=== PATIENT | male | born 1980 | race Caucasian/White ===

== ENCOUNTER 2016-10-02 16:07 | Emergency (ER) | payer OTHER ==
[2016-10-02] MEDS ORDERED: IOPAMIDOL 370 (76%) 100 ML VIAL IV ONE (16:08)
[2016-10-02] MEDS ORDERED: SODIUM CHLORIDE 0.9% 1,000 ML ONE (16:49)
[2016-10-02 16:59] LABS: ABSOLUTE NEUTROPHIL COUNT 3.9 K/mm3 (1.8-7.7); BASO % 0.5 % (0.2-1.0); EOS # 0.1 (0.0-0.5); EOS % 1.8 % (0.9-2.9); HEMATOCRIT 45.3 % (32.0-52.0); HEMOGLOBIN 15.3 gm/l (14.0-18.0); IMM NEUT% 0.5 % (0-1); LYMPH # 1.6 (1.0-4.8); MEAN CELL VOLUME 89.7 fl (80.0-94.0); MEAN CORPUSCULAR HEMOGLOBIN 30.3 pg (27.0-31.0); MEAN CORPUSCULAR HGB CONC 33.8 g/dl (33.0-37.0); MEAN PLATELET VOLUME 8.6 fl (7.4-10.4); MONO # 0.5 (0.0-0.8); MONO % 7.5 % (4-12); NEUT % 63.7 % (43-75); PLATELET COUNT 318 K/mm3 (130-400); RED CELL DISTRIBUTION WIDTH 12.7 % (11.5-14.5)
[2016-10-02 17:20] LABS: ALB/GLOB RATIO 1.3 (>1.0); ALBUMIN 4.3 gm/dL (3.5-5.7); CALCIUM 9.4 mg/dL (8.6-10.3)
--- NOTE | 2016-10-02 17:45 | CT ---
INDICATION: Cough with syncope. Tachycardia and obesity. COMPARISON: None. TECHNIQUE: Helical scan mode CT of the Thorax with 2 mm collimated images were obtained after uneventful intravenous contrast administration of 80 of Isovue-370. Sagittal and coronal reformations with high resolution lung algorithm images were also created at this time. Maximal intensity projection images and 3-D volumetric sequences were created at a separate, dedicated workstation. DLP: 1405.6 FINDINGS: There are no pulmonary arterial filling defects. The lung parenchyma is normal. No pleural effusion. The central airways are widely patent. There is no axillary, mediastinal or hilar adenopathy. The heart and great vessels opacify normally. Limited evaluation of the upper abdomen demonstrates no gross abnormalities. Review of bone windows demonstrates no osteoblastic or lytic lesions. Old rib fractures are noted bilaterally. IMPRESSION: 1. Negative for pulmonary embolism. Findings were called to Dr. Bucio at approximately 1740 hours on 10/02/2016.
[2016-10-02] MEDS ORDERED: ALBUTEROL/IPRATROPIUM 2.5/0.5 MG 3 ML/EACH DOSE ONE (17:54)
[2016-10-04 14:21] LABS: BORDETELLA PARAPERTUSSIS Negative (Negative); BORDETELLA PERTUSSIS Negative (Negative)
== END 2016-10-02 18:45 | disposition home or self-care (01) ==
LOC: ED 16:07
DX: R05 Cough (principal); R06.2 Wheezing; F17.210 Nicotine dependence, cigarettes, uncomplicated
CPT/HCPCS: 87801; 85025; 80053; 71275; 94664; 99284; 96360; 96361; 93005; 99283; J7030; Q9967